=== PATIENT | female | born 1965 | race Two or more races ===

== ENCOUNTER 2016-09-17 18:40 | Emergency (ER) | payer SELFPAY ==
[~2016-09-17] VITALS: Ht 162.6 cm; Wt 90.7 kg
[2016-09-17] MEDS ORDERED: IV NORMAL SALINE 1000ML BAG 1,000 ML IV SCH (19:00)
--- NOTE | 2016-09-17 19:01 | PHYS DOC ---
Adult General Chief Complaint Chief Complaint: CHEST PAIN HPI HPI Patient is a 51 year old female who presents with complaint of shortness of breath, chest pain, and fever. Patient states that she started getting shortness of breath, fever, and body aches 2 days ago. Patient states she started getting chest pain today. Patient states that the chest pain is generalized and hurts worse with breathing. Patient has had productive cough of yellow sputum. Patient has history of hypertension and asthma. Patient rates her pain currently as 6 out of 10. Patient took Naprosyn earlier today with minimal relief in symptoms. Review of Systems Review of Systems Constitutional: Fever, chills [] Eyes: Denies change in visual acuity, redness, or eye pain [] HENT: Denies nasal congestion or sore throat [] Respiratory: Productive cough, shortness of breath [] Cardiovascular: Chest pain, denies edema [] GI: Denies abdominal pain, nausea, vomiting, bloody stools or diarrhea [] : Denies dysuria or hematuria [] Musculoskeletal: Body aches [] Integument: Denies rash or skin lesions [] Neurologic: Denies headache, focal weakness or sensory changes [] Endocrine: Denies polyuria or polydipsia [] Current Medications Current Medications Current Medications Medications (Trade) Dose Ordered Sig/Radha Start Time Stop Time Status Last Admin Dose Admin Albuterol/ Ipratropium (Duoneb) 3 ml 1X ONCE 09/17/16 19:15 09/17/16 19:16 DC 09/17/16 19:20 3 ML Fentanyl Citrate (Fentanyl 2ml Vial) 50 mcg PRN Q15MIN PRN 09/17/16 19:15 09/18/16 19:14 09/17/16 21:12 50 MCG Ibuprofen (Motrin) 600 mg 1X ONCE 09/17/16 19:15 09/17/16 19:16 DC 09/17/16 19:20 600 MG Sodium Chloride (Iv Sodium Chloride 0.9% 1000ml Bag) 1,000 ml @ 1,000 mls/hr Q1H 09/17/16 19:00 09/17/16 19:59 DC 09/17/16 19:20 1,000 MLS/HR Allergies Allergies Allergies Coded Allergies Type Severity Reaction Last Updated Verified No Known Drug Allergies 09/17/16 No Physical Exam Physical Exam Constitutional: Alert, febrile, appears ill. [] HENT: Normocephalic, atraumatic, bilateral external ears normal, oropharynx mildly erythematous, no oral exudates, nose normal. [] Eyes: PERRLA, EOMI, conjunctiva normal, no discharge. [] Neck: Normal range of motion, no tenderness, supple, no stridor. [] Cardiovascular:Heart rate regular rhythm, no murmur [] Lungs & Thorax: Mild restriction of air movement bilaterally, rhonchi bilaterally, no wheezes [] Abdomen: Bowel sounds normal, soft, epigastric tenderness to palpation, no right upper quadrant tenderness to palpation, no masses, no pulsatile masses. [ ] Skin: Warm, dry, no erythema, no rash. [] Back: No tenderness, no CVA tenderness. [] Extremities: No tenderness, no cyanosis, no clubbing, ROM intact, no edema. [] Neurologic: Alert and oriented X 3, normal motor function, normal sensory function, no focal deficits noted. [] Current Patient Data Vital Signs Vital Signs Date Time Temp Pulse Resp B/P Pulse Ox O2 Delivery O2 Flow Rate FiO2 09/17/16 20:14 99.5 89 20 162/74 98 Room Air 99.5 Lab Values Laboratory Tests Test 09/17/16 18:50 09/17/16 19:00 White Blood Count 6.3x10^3/uL (4.0-11.0) Red Blood Count 4.90x10^6/uL (3.50-5.40) Hemoglobin 14.4g/dL (12.0-15.5) Hematocrit 42.9% (36.0-47.0) Mean Corpuscular Volume 88fL (79-100) Mean Corpuscular Hemoglobin 29pg (25-35) Mean Corpuscular Hemoglobin Concent 34g/dL (31-37) Red Cell Distribution Width 13.3% (11.5-14.5) Platelet Count 229x10^3/uL (140-400) Neutrophils (%) (Auto) 59% (31-73) Lymphocytes (%) (Auto) 29% (24-48) Monocytes (%) (Auto) 9% (0-9) Eosinophils (%) (Auto) 2% (0-3) Basophils (%) (Auto) 1% (0-3) Neutrophils # (Auto) 3.7x10^3uL (1.8-7.7) Lymphocytes # (Auto) 1.8x10^3/uL (1.0-4.8) Monocytes # (Auto) 0.6x10^3/uL (0.0-1.1) Eosinophils # (Auto) 0.1x10^3/uL (0.0-0.7) Basophils # (Auto) 0.0x10^3/uL (0.0-0.2) Sodium Level 140mmol/L (136-145) Potassium Level 3.5mmol/L (3.5-5.1) Chloride Level 102mmol/L (98-107) Carbon Dioxide Level 29mmol/L (21-32) Anion Gap 9 (6-14) Blood Urea Nitrogen 9mg/dL (7-20) Creatinine 0.8mg/dL (0.6-1.0) Estimated GFR (Cockcroft-Gault) 75.6 BUN/Creatinine Ratio 11 (6-20) Glucose Level 93mg/dL (70-99) Lactic Acid Level 1.1mmol/L (0.4-2.0) Calcium Level 9.1mg/dL (8.5-10.1) Total Bilirubin 0.5mg/dL (0.2-1.0) Aspartate Amino Transferase (AST) 80U/L (15-37) H Alanine Aminotransferase (ALT) 129U/L (14-59) H Alkaline Phosphatase 128U/L (46-116) H Creatine Kinase 114U/L (26-192) Creatine Kinase MB (Mass) < 0.5ng/mL (0.0-3.6) Creatine Kinase MB Relative Index 0.4% (0-4) Troponin I Quantitative < 0.017ng/mL (0.000-0.055) RO-Oai-W-Type Natriuretic Peptide 69pg/mL (0-124) Total Protein 7.7g/dL (6.4-8.2) Albumin 3.7g/dL (3.4-5.0) Albumin/Globulin Ratio 0.9 (1.0-1.7) L Lipase 109U/L (73-393) Heterophil Agglutinins Negative (NEGATIVE) Urine Collection Type Unknown Urine Color Yellow Urine Clarity Clear Urine pH 7.0 Urine Specific [place] 1.010 Urine Protein Negativemg/dL (NEG-TRACE) Urine Glucose (UA) Negativemg/dL (NEG) Urine Ketones (Stick) Negativemg/dL (NEG) Urine Blood Negative (NEG) Urine Nitrite Negative (NEG) Urine Bilirubin Negative (NEG) Urine Urobilinogen Dipstick 1.0mg/dL (0.2 mg/dL) Urine Leukocyte Esterase Negative (NEG) Urine RBC Occ/HPF (0-2) Urine WBC Occ/HPF (0-4) Urine Squamous Epithelial Cells Few/LPF Urine Bacteria 0/HPF (0-FEW) Influenza Type A Antigen Negative (NEGATIVE) Influenza Type B Antigen Negative (NEGATIVE) Laboratory Tests 09/17/16 18:50 Laboratory Tests 09/17/16 18:50 EKG EKG Interpreted by me: Heart rate 80, sinus rhythm, normal intervals, leftward axis , no acute ST/T-wave abnormalities present [] Radiology/Procedures Radiology/Procedures One view AP chest x-ray interpreted by me: No infiltrate, no effusion, normal cardiac silhouette [facility] [address] [place] [address] IMAGING REPORT Signed PATIENT: AMOR LÓPEZ ACCOUNT: [id number] : 1965 LOCATION: ER AGE: 51 SEX: F EXAM STATUS: REG ER ORD. PHYSICIAN: CECE LINDA MD REASON: epigastric pain, elevated transaminases. VIK CALLED PROCEDURE: ABDOMEN LTD PROCEDURE Ultrasound limited abdomen HISTORY Right upper quadrant pain with nausea and vomiting TECHNIQUE Sonographic examination of the right upper quadrant was performed and multiple static images were obtained. FINDINGS There is increased echogenicity and attenuation of sound in the liver further limiting ultrasound sensitivity for possible solid mass. Majority liver is visualized and appears homogeneous. The gallbladder is not well seen due to overlying bowel gas but appears normal. The common bile duct is not seen due to overlying bowel gas. The abdominal aorta IVC and pancreas are not seen. IMPRESSION Fatty infiltration of the liver. No other findings. Electronically signed by: Rio Davila MD (Sep 17, 2016 21:21:35) DICTATED and SIGNED BY: RIO DAVILA III, MD DATE: 09/17/162120 CC: CECE LINDA MD; UNKNOWN PCP NAME ~ [] Course & Med Decision Making Course & Med Decision Making Pertinent Labs and Imaging studies reviewed. (See chart for details) The patient was treated with IV fluids, fentanyl, Zofran, and ibuprofen. On reevaluation, patient states her symptoms have improved. Patient was noted to have mild elevated transaminases. Patient's flu, strep, and mononucleosis tests were negative. Patient's symptoms due to suspected viral illness. Recommended the patient continue on ibuprofen for fever and body aches as well as Zofran as needed for nausea. Advised rest and hydration at home with follow-up in 2 days with primary doctor. Advised return emergency department for any worsening symptoms. Patient voiced understanding and in agreement with treatment plan. Dragon Disclaimer Dragon Disclaimer This electronic medical record was generated, in whole or in part, using a voice recognition dictation system. Departure Departure Impression: Primary Impression: Fever Additional Impressions: Viral upper respiratory illness Abdominal pain Disposition: HOME, SELF-CARE Condition: IMPROVED Patient Instructions: Abdominal Pain (Nonspecific), Fever, Upper Respiratory Infection, Adult Additional Instructions: Follow-up with your primary doctor in 2 days. Return to the emergency department for any worsening symptoms. Scripts Albuterol Sulfate (Proair Hfa Inhaler)8.5 Gm Hfa.aer.ad2 Puff INH Q4-6HRS PRN SHORTNESS OF BREATH #1 INHALER Ref 0 Prov:CECE LINDA MD 09/17/16 Benzonatate (Tessalon Perle)100 Mg [id number] Mg PO TID PRN COUGH #30 CAP Prov:CECE LINDA MD 09/17/16 Ondansetron (Zofran Odt)4 Mg Tab.rapdis1 Tab SL Q8HRS PRN NAUSEA/VOMITING #15 TAB Prov:CECE LINDA MD 09/17/16 Ibuprofen 600 Mg Gattpr297 Mg PO Q6HRS PRN FEVER #20 TAB Prov:CECE LINDA MD 09/17/16 Problem Qualifiers Primary Impression: Fever Fever type: unspecified Qualified Code: R50.9 - Fever, unspecified Additional Impressions: Abdominal pain Abdominal location: epigastric Qualified Code: R10.13 - Epigastric pain CECE LIDNA MD Sep 17, 2016 19:00
[2016-09-17] MEDS ORDERED: IBUPROFEN 600 MG TABLET. PO ONE (19:15)
[2016-09-17] MEDS ORDERED: IPRATRPIUM/ALBUTEROL 0.5/2.5MG 3 ML NEBU. NEB ONE (19:15)
[2016-09-17 19:17] LABS: BASO % 1 % (0-3); EOS % 2 % (0-3); HEMATOCRIT 42.9 % (36.0-47.0); HEMOGLOBIN 14.4 g/dL (12.0-15.5); LYMPH # 1.8 x10^3/uL (1.0-4.8); LYMPH % 29 % (24-48); MEAN CORPUSCULAR HEMOGLOBIN 29 pg (25-35); MEAN CORPUSCULAR HGB CONC 34 g/dL (31-37); MEAN CORPUSCULAR VOLUME 88 fL (79-100); MONO % 9 % (0-9); NEUT % 59 % (31-73); PLATELET COUNT 229 x10^3/uL (140-400); RED CELL DISTRIBUTION WIDTH 13.3 % (11.5-14.5); WHITE BLOOD COUNT 6.3 x10^3/uL (4.0-11.0)
[2016-09-17] MEDS: FENTANYL PF 100 MCG/2 ML VIAL. IV PRN ×2 (19:22→21:12)
[2016-09-17 19:33] LABS: BILIRUBIN,URINE NEGATIVE (NEG); GLUCOSE,URINE NEGATIVE (NEG); NITRITE,URINE NEGATIVE (NEG); PROTEIN,URINE NEGATIVE (NEG-TRACE)
[2016-09-17 19:38] LABS: CALCIUM 9.1 mg/dL (8.5-10.1); CREATININE 0.8 mg/dL (0.6-1.0); GFR 75.6; POTASSIUM 3.5 mmol/L (3.5-5.1)
[2016-09-17 19:43] LABS: BACTERIA,URINE 0 /HPF (0-FEW); RBC,URINE OCC /HPF (0-2); SQUAMOUS EPITHELIAL CELL,UR FEW /LPF; WBC,URINE OCC /HPF (0-4)
[2016-09-17 19:45] LABS: ALBUMIN 3.7 g/dL (3.4-5.0); ALBUMIN/GLOBULIN RATIO 0.9 (1.0-1.7); TOTAL BILIRUBIN 0.5 mg/dL (0.2-1.0); TOTAL PROTEIN 7.7 g/dL (6.4-8.2)
[2016-09-17 19:50] LABS: OBC FLU VALID
[2016-09-17 19:54] LABS: CREATINE KINASE 114 U/L (26-192)
[2016-09-17 19:57] LABS: CKMB INDEX 0.4 % (0-4); CKMB MASS < 0.5 ng/mL (0.0-3.6)
[2016-09-17 20:48] LABS: NEGATIVE OBC MONO NEG; POSITIVE OBC MONO POS
--- NOTE | 2016-09-17 21:23 | RAD ---
PROCEDURE Ultrasound limited abdomen HISTORY Right upper quadrant pain with nausea and vomiting TECHNIQUE Sonographic examination of the right upper quadrant was performed and multiple static images were obtained. FINDINGS There is increased echogenicity and attenuation of sound in the liver further limiting ultrasound sensitivity for possible solid mass. Majority liver is visualized and appears homogeneous. The gallbladder is not well seen due to overlying bowel gas but appears normal. The common bile duct is not seen due to overlying bowel gas. The abdominal aorta IVC and pancreas are not seen. IMPRESSION Fatty infiltration of the liver. No other findings. Electronically signed by: Heath Davila MD (Sep 17, 2016 21:21:35)
[2016-09-17] MEDS ORDERED: IBUP-1007 PO (21:36)
[2016-09-17] MEDS ORDERED: BENZ100C PO (21:36)
[2016-09-17] MEDS ORDERED: ONDA4TAB10 SL (21:36)
[2016-09-17 21:45] VITALS: BP 137/63
[2016-09-17] MEDS ORDERED: PROAIR HFA8.5 GM INH (21:53)
[2016-09-18 07:57] LABS: NEGATIVE OBC STREP NEG; POSITIVE OBC STREP POS
--- NOTE | 2016-09-18 08:49 | RAD ---
Indication cough fever shortness of air. A single view of the chest was obtained. No prior imaging is available of the chest. Heart size is at the upper limits of normal. There is no congestive heart failure focal infiltrate significant pleural fluid collection or pneumothorax. The visualized bony structures appear grossly intact. IMPRESSION: No acute or focal process seen in the chest
--- NOTE | 2016-09-18 11:26 | EKG ---
[facility] [address] [place] [address] Test Date: 2016-09-17 Test Time: 18:44:45 Pat Name: AMOR LÓPEZ Department: Room: Gender: F [employer]: : 1965 Requested By: CECE LINDA Order Number: [id number] Reading MD: Measurements Intervals [place] Rate: 80 P: 22 MT: 122 QRS: -7 QRSD: 78 T: 21 QT: 344 QTc: 400 Interpretive Statements SINUS RHYTHM LEFTWARD AXIS NO SPECIFIC ECG ABNORMALITIES RI6.01 No previous ECG available for comparison
== END 2016-09-17 21:55 | disposition home or self-care (01) ==
LOC: ER 18:40
DX: J39.8 Other specified diseases of upper respiratory tract (principal); R10.13 Epigastric pain; R74.0 Nonspecific elevation of levels of transaminase and lactic acid dehydrogenase [LDH]; I10 Essential (primary) hypertension; J45.909 Unspecified asthma, uncomplicated
CPT/HCPCS: 36415; 71010; 76705; 80053; 81001; 82553; 83605; 83690; 83880; 84484; 85027; 86308; 87040; 87070; 87804; 87880; 93005; 94250; 94640; 96361; 96374; 96376; 99285; J3010; J7030; J7620